=== PATIENT | female | born 1945 | race Caucasian/White ===

== ENCOUNTER → 2017-04-19 | Outpatient (CLI) | payer MEDICARE ==
--- NOTE | 2017-04-19 16:13 | Diagnostic Imaging Report ---
PROCEDURE: Frontal and lateral views of the chest. COMPARISON: Patients [facility], , CHEST 2 VIEWS, 03/31/2015, 11:07. INDICATIONS: BRONCHITIS, ASTHMA FINDINGS: Lines/tubes: None. Lungs: Diffuse coarsening of the pulmonary interstitium again observed suggestive of interstitial lung disease. There is no evidence of consolidative pneumonia or pulmonary edema. Pleura: There is no pleural effusion or pneumothorax. Heart and mediastinum: The heart and the mediastinum are normal. Bones: No acute bony abnormality. IMPRESSION: 1. bilateral interstitial lung disease changes again observed. No significant interval change. Jaxson Sepulveda M.D. Dictated by: Jaxson Sepulveda M.D. on 04/19/2017 at 16:13 Electronically approved by: Jaxson Sepulveda M.D. on 04/19/2017 at 16:13
== END ==
LOC: RAD 15:26
PROVIDERS: ATTEND Emergency Medicine
DX: J20.9 Acute bronchitis, unspecified (principal)
CPT/HCPCS: 71046

== ENCOUNTER → 2018-11-16 | Outpatient (CLI) | payer MEDICARE ==
--- NOTE | 2018-11-16 12:01 | Diagnostic Imaging Report ---
EXAMINATION: CHEST 2 VIEWS INDICATION: Shortness of breath, cough, asthma COMPARISON: None FINDINGS: LINES/TUBES:None LUNGS:The lungs are moderately inflated. There are bilateral, predominantly peripheral increased reticular interstitial opacities. No focal consolidation. Mild subsegmental atelectasis at the left lung base. PLEURA:No pleural effusion or pneumothorax. MEDIASTINUM:The cardiomediastinal silhouette appears normal in size and shape. Atherosclerotic calcifications of the thoracic aorta. BONES/SOFT TISSUES:No acute osseous injury. ABDOMEN:No free air under the diaphragm. Status post cholecystectomy. IMPRESSION: Bilateral predominantly peripheral increased reticular interstitial opacities can be seen with interstitial lung disease. Mild subsegmental atelectasis at the left lung base. No focal pneumonia or pulmonary edema. Signed by: Pritesh Munoz MD on 11/16/2018 11:57 AM
== END ==
LOC: RAD 11:25
PROVIDERS: ATTEND Emergency Medicine
DX: R06.02 Shortness of breath (principal)
CPT/HCPCS: 71046